=== PATIENT | female | born 1985 | race African-American/Black ===

== ENCOUNTER 2016-09-24 00:17 | Emergency (ER) | payer MEDICARE, MEDICAID | END 2016-09-24 01:51 | disposition home or self-care (01) | LOC: D.ER 00:17 | DX: J02.9 Acute pharyngitis, unspecified (principal); J45.909 Unspecified asthma, uncomplicated ==

== ENCOUNTER 2017-01-23 11:40 | Emergency (ER) | payer MEDICARE, MEDICAID ==
[2017-01-23 12:15] LABS: HCG URINE POSITIVE (NEGATIVE)
[2017-01-23 12:23] LABS: BASOPHILS 0.1 % (0-2); EOSINOPHILS 0.9 % (0-7); HEMATOCRIT 35.9 % (36.0-48.0); HEMOGLOBIN 11.7 g/dL (12-16); IMMATURE GRANULOCYTES 0.4 % (0-5); LYMPHOCYTES 19.6 % (15-50); MCH 27.7 pg (26.0-34.0); MCHC 32.6 g/dL (31.0-37.0); MCV 84.9 fL (80.0-100.0); MEAN PLATELET VOLUME 9.5 fL (7.4-10.4); MONOCYTES 7.2 % (2-11); NEUTROPHILS 71.8 % (40-80); PLATELET COUNT 415 10x3/uL (130-400); RBC 4.23 10x6/uL (4.00-5.40); RDW 13.1 % (11.5-14.5)
[2017-01-23 12:27] LABS: APPEARANCE TURBID (CLEAR); BILIRUBIN NEGATIVE (NEGATIVE); COLOR RED (YELLOW); GLUCOSE NEGATIVE (NEGATIVE); KETONE NEGATIVE (NEGATIVE); NITRITE NEGATIVE (NEGATIVE); PROTEIN 3+ mg/dL (NEGATIVE); UROBILINOGEN NORMAL (NORMAL)
[2017-01-23 12:29] LABS: BACTERIA FEW /hpf (NONE SEEN); EPITHELIAL CELLS 0-5 /hpf (0-5); RED CELLS - URINE >50 /hpf (0-5); WHITE CELLS - URINE 0-5 /hpf (0-5)
[2017-01-23 13:01] LABS: CALC OSMOLALITY 268 mosm/kg (275-300); CALCIUM 8.6 mg/dL (8.5-10.1); CARBON DIOXIDE 27.5 mmol/L (21.0-32.0); CHLORIDE - SERUM 101 mmol/L (98-107); CREATININE - SERUM 0.7 mg/dL (0.6-1.3); GLUCOSE 91 mg/dL (74-106); HCG - QUANTITATIVE (MATERNAL) 15858 mIU/mL; POTASSIUM - SERUM 3.6 mmol/L (3.5-5.1); SODIUM 136 mmol/L (136-145); UREA NITROGEN 5 mg/dL (7-18); eGFR NON AFRICAN AMERICAN > 90 mL/min (90-120)
== END 2017-01-23 15:08 | disposition home or self-care (01) ==
LOC: D.ER 11:40
PROVIDERS: Nurse Practitioner Acute Care
DX: O20.0 Threatened abortion (principal); Z3A.00 Weeks of gestation of pregnancy not specified; J45.909 Unspecified asthma, uncomplicated

== ENCOUNTER 2018-07-24 17:51 | Emergency (ER) | payer MEDICARE, MEDICAID ==
[~2018-07-24] VITALS: Ht 162.6 cm; Wt 113.6 kg
[2018-07-24 18:05] VITALS: Ht 162.6 cm; Wt 113.6 kg
[2018-07-24] MEDS ORDERED: UNKNOWN ANTIBIOTIC (18:08)
[2018-07-24] MEDS ORDERED: CYCLOBENZAPRINE10 MG PO (19:36)
[2018-07-24] MEDS ORDERED: MEDROL DOSE PACK4 MG PO (19:36)
[2018-07-24 20:31] VITALS: BP 141/85
== END 2018-07-24 20:16 | disposition home or self-care (01) ==
LOC: D.ER 17:51
DX: S29.012A Strain of muscle and tendon of back wall of thorax, initial encounter (principal); W18.2XXA Fall in (into) shower or empty bathtub, initial encounter; Y93.E1 Activity, personal bathing and showering; Y92.012 Bathroom of single-family (private) house as the place of occurrence of the external cause

== ENCOUNTER 2018-11-03 20:09 | Emergency (ER) | payer MEDICARE, MEDICAID ==
[~2018-11-03] VITALS: Ht 162.6 cm; Wt 109.1 kg
[~2018-11-03 20:09] MED LIST: CYCLOBENZAPRINE10 MG PO; MEDROL DOSE PACK4 MG PO; UNKNOWN ANTIBIOTIC
[2018-11-03 20:26] VITALS: Ht 162.6 cm; Wt 109.1 kg
[2018-11-03] MEDS ORDERED: CYCLOBENZAPRINE10 MG PO (22:34)
[2018-11-03] MEDS ORDERED: IBUPROFEN800 MG PO (22:34)
[2018-11-03] MEDS ORDERED: ACETAMINOPHEN500 M1 PO (22:34)
[2018-11-03 22:46] VITALS: BP 140/78
== END 2018-11-03 22:47 | disposition home or self-care (01) ==
LOC: D.ER 20:09
DX: M54.5 Low back pain (principal); V43.52XA Car driver injured in collision with other type car in traffic accident, initial encounter; Y93.89 Activity, other specified; Y92.410 Unspecified street and highway as the place of occurrence of the external cause

== ENCOUNTER 2018-12-12 12:57 | Emergency (ER) | payer MEDICARE, MEDICAID ==
[~2018-12-12] VITALS: Ht 162.6 cm; Wt 113.6 kg
[~2018-12-12 12:57] MED LIST changes: +ACETAMINOPHEN500 M1 PO; +IBUPROFEN800 MG PO
[2018-12-12 13:02] VITALS: BP 127/77; Ht 162.6 cm; Wt 113.6 kg
[2018-12-12] MEDS ORDERED: ADVAIR 250/501 DISK INH (13:06)
[2018-12-12] MEDS ORDERED: HYDROCODON-ACE1 EAC7 PO (14:09)
[2018-12-12] MEDS ORDERED: VOLTAREN75 MG PO (14:09)
== END 2018-12-12 14:38 | disposition home or self-care (01) ==
LOC: D.ER 12:57
DX: S92.252A Displaced fracture of navicular [scaphoid] of left foot, initial encounter for closed fracture (principal); W19.XXXA Unspecified fall, initial encounter

== ENCOUNTER → 2019-10-08 10:52 | Outpatient (CLI) | payer MEDICARE, MEDICAID ==
[2018-12-12 13:02] VITALS: BMI 43.0
[~2019-10-08 10:52] MED LIST changes: +ADVAIR 250/501 DISK INH; +HYDROCODON-ACE1 EAC7 PO; +VOLTAREN75 MG PO
== END | disposition home or self-care (01) ==
LOC: D.US 08:30
PROVIDERS: ATTEND Emergency Medicine
DX: R94.5 Abnormal results of liver function studies (principal); J45.909 Unspecified asthma, uncomplicated; E78.5 Hyperlipidemia, unspecified; E03.9 Hypothyroidism, unspecified; E78.2 Mixed hyperlipidemia; M54.5 Low back pain

== ENCOUNTER 2019-11-08 20:21 | Emergency (ER) | payer MEDICARE, MEDICAID ==
[~2019-11-08] VITALS: Ht 162.6 cm; Wt 117.7 kg
[2019-11-08 20:26] VITALS: BP 134/79; Ht 162.6 cm; Wt 117.7 kg
== END 2019-11-08 20:46 | disposition home or self-care (01) ==
LOC: D.ER 20:21
DX: S63.502A Unspecified sprain of left wrist, initial encounter (principal); J45.909 Unspecified asthma, uncomplicated; M79.602 Pain in left arm

== ENCOUNTER 2019-11-17 17:08 | Emergency (ER) | payer MEDICARE, MEDICAID ==
[2019-11-17 17:15] VITALS: Ht 162.6 cm
[2019-11-17 19:14] LABS: CALC OSMOLALITY 269 mosm/kg (275-300); CALCIUM 9.4 mg/dL (8.5-10.1); CARBON DIOXIDE 27.3 mmol/L (21.0-32.0); CHLORIDE - SERUM 99 mmol/L (98-107); CREATININE - SERUM 0.7 mg/dL (0.6-1.3); GLUCOSE 104 mg/dL (74-106); POTASSIUM - SERUM 3.6 mmol/L (3.5-5.1); SODIUM 136 mmol/L (136-145); UREA NITROGEN 7 mg/dL (7-18); eGFR NON AFRICAN AMERICAN > 90 mL/min (90-120)
[2019-11-17 19:15] LABS: HCG SERUM NEGATIVE (NEGATIVE)
[2019-11-17 19:18] LABS: BASOPHILS 0.2 % (0-2); EOSINOPHILS 0.2 % (0-7); HEMATOCRIT 39.7 % (36.0-48.0); HEMOGLOBIN 12.9 g/dL (12-16); IMMATURE GRANULOCYTES 0.3 % (0-5); LYMPHOCYTES 10.8 % (15-50); MCHC 32.5 g/dL (31.0-37.0); MCV 86.1 fL (80.0-100.0); MEAN PLATELET VOLUME 9.3 fL (7.4-10.4); MONOCYTES 4.3 % (2-11); NEUTROPHILS 84.2 % (40-80); PLATELET COUNT 465 10x3/uL (130-400); RBC 4.61 10x6/uL (4.00-5.40); RDW 12.6 % (11.5-14.5); WBC 13.4 10x3/uL (4.8-10.8)
[2019-11-17 19:20] LABS: ALBUMIN 3.4 g/dL (3.4-5.0); ALKALINE PHOSPHATASE 140 U/L (30-120); ALT (SGPT) 254 U/L (10-68); BILIRUBIN - TOTAL 0.33 mg/dL (0.2-1.3); PROTEIN - SERUM 8.7 g/dL (6.4-8.2)
[2019-11-17 19:23] LABS: BILIRUBIN NEGATIVE (NEGATIVE); GLUCOSE NEGATIVE (NEGATIVE); KETONE NEGATIVE (NEGATIVE); NITRITE NEGATIVE (NEGATIVE); UROBILINOGEN NORMAL (NORMAL)
[2019-11-17 19:26] LABS: WHITE CELLS - URINE 0-5 /hpf (NEGATIVE)
[2019-11-17 19:27] LABS: BACTERIA MODERATE /hpf (NEGATIVE); RED CELLS - URINE 0-5 /hpf (0-5)
[2019-11-17] MEDS ORDERED: MACROBID100 MG PO (19:28)
[2019-11-17 19:51] VITALS: BP 148/88
== END 2019-11-17 19:51 | disposition home or self-care (01) ==
LOC: D.ER 17:08
PROVIDERS: Family Medicine
DX: N39.0 Urinary tract infection, site not specified (principal); R53.1 Weakness; D72.829 Elevated white blood cell count, unspecified; J45.909 Unspecified asthma, uncomplicated